=== PATIENT | female | born 1965 | race Two or more races ===

== ENCOUNTER 2018-01-19 08:46 | Outpatient (CLI) | payer OTHER | END 2018-01-19 09:00 | disposition home or self-care (01) | LOC: MAMO-SONO 08:46 | DX: Z12.31 Encounter for screening mammogram for malignant neoplasm of breast (principal); N64.89 Other specified disorders of breast; N85.8 Other specified noninflammatory disorders of uterus; K76.0 Fatty (change of) liver, not elsewhere classified ==

== ENCOUNTER 2018-09-10 15:05 | Emergency (ER) | payer OTHER ==
[~2018-09-10] VITALS: Ht 167.6 cm; Wt 90.7 kg
[2018-09-10] MEDS ORDERED: AVALIDE 300-121 EACH (15:19)
[2018-09-10] MEDS ORDERED: TOPROL XL25 M1 (15:20)
== END 2018-09-10 22:15 | disposition home or self-care (01) ==
LOC: ER 15:05
DX: S00.83XA Contusion of other part of head, initial encounter (principal); S40.011A Contusion of right shoulder, initial encounter; W18.09XA Striking against other object with subsequent fall, initial encounter; Y93.89 Activity, other specified; Y92.89 Other specified places as the place of occurrence of the external cause; Y99.8 Other external cause status

== ENCOUNTER 2020-02-22 09:15 | Outpatient (CLI) | payer OTHER ==
[~2020-02-22 09:15] MED LIST: AVALIDE 300-121 EACH; TOPROL XL25 M1
== END 2020-02-22 15:00 | disposition home or self-care (01) ==
LOC: PPH VACUNA 09:15
DX: Z23 Encounter for immunization (principal)

== ENCOUNTER 2023-02-01 12:05 | Outpatient (CLI) | payer OTHER | END 2023-02-01 12:12 | disposition home or self-care (01) | LOC: RAD 12:05 | DX: R06.02 Shortness of breath (principal) ==

== ENCOUNTER 2023-05-26 09:10 | Outpatient (CLI) | payer OTHER | END 2023-05-26 09:24 | disposition home or self-care (01) | LOC: MRI 09:10 | DX: S83.231A Complex tear of medial meniscus, current injury, right knee, initial encounter (principal); S83.412A Sprain of medial collateral ligament of left knee, initial encounter | CPT/HCPCS: 73721 ==

== ENCOUNTER 2023-12-10 09:40 | Outpatient (CLI) | payer OTHER | END 2023-12-10 09:49 | disposition home or self-care (01) | LOC: RAD 09:40 | DX: M25.551 Pain in right hip (principal); S73.191A Other sprain of right hip, initial encounter ==

== ENCOUNTER 2025-01-02 07:43 | Outpatient (CLI) | payer OTHER | END 2025-01-02 07:55 | disposition home or self-care (01) | LOC: MAMO-SONO 07:43 | PROVIDERS: ATTEND Internal Medicine Endocrinology, Diabetes & Metabolism | DX: N64.1 Fat necrosis of breast (principal); Z12.31 Encounter for screening mammogram for malignant neoplasm of breast; R74.01 Elevation of levels of liver transaminase levels; K74.00 Hepatic fibrosis, unspecified; E04.1 Nontoxic single thyroid nodule ==